=== PATIENT | female | born 1945 | race Caucasian/White ===

== ENCOUNTER → 2018-04-11 | Outpatient (CLI) | payer OTHER, BC ==
[~2018-04-11] MED LIST: HYDROCHLOROTHIA25 M2 PO; LIPITOR10 MG PO; LOPRESSOR25 PO; NORCO 5-325 TA1 EACH PO; TOPROL XL25 MG PO
--- NOTE | ~2018-04-11 | 2DMMODE ---
[facility] [place] [address] 2 D/M-MODE ECHOCARDIOGRAM Name: TRUDY RAMIREZ Room #: REG [facility]#: [id number] Admission: 04/11/18 Attend Phys: Kurtis Szymanski Discharge: Date of : 41 Date of Service: 04/11/18 1031 Report #: [id number] THIS REPORT FOR: //name// APPROVED REPORT Study performed: 04/11/2018 09:39:36 EXAM: Comprehensive 2D, Doppler, and color-flow Echocardiogram Patient Location: Out-Patient Status: routine BSA: 1.74 HR: 69 bpm BP: 118/82 mmHg Rhythm: Pacemaker Other Information Study Quality: Good Indications Pacemaker 2D Dimensions RVDd: 33.54 mm IVSd: 9.83 (7-11mm) LVOT Diam: 18.79 (18-24mm) LVDd: 40.91 mm PWd: 10.24 (7-11mm) Ascending Ao: 29.71 (22-36mm) LVDs: 32.73 (25-40mm) Aortic Root: 29.37 mm IVC: 23.00 mm Volumes Left Atrial Volume (Systole) Single Plane 4CH: 87.66 mL Single Plane 2CH: 76.60 mL LA ESV Index: 50.00 mL/m2 Aortic Valve AoV Peak Sven.: 1.10 m/s AO Peak Gr.: 4.84 mmHg LVOT Max P.42 mmHg LVOT Max V: 0.78 m/s CAITLYN Vmax: 1.96 cm2 Pulmonary Valve PV Peak Sven.: 0.70 m/s PV Peak Gr.: 1.95 mmHg Tricuspid Valve [facility] [address] [address] 2 D/M-MODE ECHOCARDIOGRAM Name: TRUDY RAMIREZ Room #: REG [facility]#: [id number] Admission: 04/11/18 Attend Phys: Kurtis Szymanski Discharge: Date of : 41 Date of Service: 04/11/18 1031 Report #: [id number] TR Peak Sven.: 2.31 m/s TR Peak Gr.: 21.33 mmHg PA Pressure: 31.00 mmHg Left Ventricle The left ventricle is normal size. There is hypokinesis in the apical wall. There is hypokinesis in the apical septal wall. There is hypokinesis in the inferior wall. Mild concentric left ventricular hypertrophy. Left ventricular systolic function is mildly decreased. LVEF is 40-45%. This study is not technically sufficient to allow evaluation of the LV diastolic function. Right Ventricle The right ventricle is normal size. The right ventricular systolic function is normal. Pacemaker lead is present in the right ventricle. Atria Left atrium is dilated. Right atrium is dilated. Pacemaker lead is present in the right atrium. Aortic Valve The aortic valve is normal in structure. Aortic valve is calcified. No aortic regurgitation is present. There is no aortic valvular stenosis. Mitral Valve The mitral valve is normal in structure. Mild mitral regurgitation. No evidence of mitral valve stenosis. Tricuspid Valve The tricuspid valve is normal in structure. There is moderate tricuspid regurgitation. Estimated PAP 31 mmHg. There is mild pulmonary hypertension. Pulmonic Valve The pulmonary valve is normal in structure. Trace pulmonic regurgitation. Great Vessels The aortic root is normal in size. IVC is dilated and collapses >50% with inspiration. Pericardium There is no pericardial effusion. <Conclusion> [facility] [address] [place] [address] 2 D/M-MODE ECHOCARDIOGRAM Name: TRUDY RAMIREZ Room [facility]: [facility] [id number] Admission: 04/11/18 Attend Phys: Kurtis Szymanski Discharge: Date of : 41 Date of Service: 04/11/18 1031 Report #: [id number] The left ventricle is normal size. LVEF is 40-45%. There is hypokinesis in the apical wall. There is hypokinesis in the apical septal wall. There is hypokinesis in the inferior wall. Left atrium is dilated. Right atrium is dilated. Pacemaker lead is present in the right atrium. The aortic valve is normal in structure. Aortic valve is calcified. There is no aortic valvular stenosis. The mitral valve is normal in structure. Mild mitral regurgitation. The tricuspid valve is normal in structure. There is moderate tricuspid regurgitation. Estimated PAP 31 mmHg. There is mild pulmonary hypertension. The pulmonary valve is normal in structure. Trace pulmonic regurgitation. There is no pericardial effusion. <ELECTRONICALLY SIGNED> By: Abhishek Campos MD 04/11/18 1031 1031 1031 Abhishek Campos MD /INF
== END ==
LOC: CV 09:30
DX: I08.1 Rheumatic disorders of both mitral and tricuspid valves (principal); I27.20 Pulmonary hypertension, unspecified; Z95.0 Presence of cardiac pacemaker

== ENCOUNTER → 2019-04-25 | Outpatient (CLI) | payer OTHER, BC ==
--- NOTE | 2019-04-25 09:38 | 2DMMODE ---
[facility] [place] [address] 2 D/M-MODE ECHOCARDIOGRAM Name: TRUDY RAMIREZ Room #: REG [facility]#: [id number] Admission: 04/25/19 Attend Phys: Kurtis Szymanski Discharge: Date of : 41 Report #: [id number] THIS REPORT FOR: //name// APPROVED REPORT Study performed: 04/25/2019 09:00:37 EXAM: Comprehensive 2D, Doppler, and color-flow Echocardiogram Patient Location: Out-Patient Status: routine BSA: 1.67 HR: 70 bpm BP: 118/82 mmHg Rhythm: Pacemaker Other Information Study Quality: Excellent Indications Pacemaker, cardiomyopathy. 2D Dimensions RVDd: 39.42 mm IVSd: 12.00 (7-11mm) LVOT Diam: 19.12 (18-24mm) LVDd: 41.41 mm PWd: 10.01 (7-11mm) Ascending Ao: 30.61 (22-36mm) LVDs: 32.82 (25-40mm) Aortic Root: 29.98 mm Volumes Left Atrial Volume (Systole) Single Plane 4CH: 97.47 mL Single Plane 2CH: 87.38 mL LA ESV Index: 60.00 mL/m2 Aortic Valve AoV Peak Sven.: 1.26 m/s AO Peak Gr.: 6.30 mmHg LVOT Max P.86 mmHg LVOT Max V: 0.85 m/s CAITLYN Vmax: 1.93 cm2 Mitral Valve MV Decel. Time: 101.63 ms MV E Max Sven.: 0.80 m/s IVRT: 115.34 ms [facility] [address] [place] [address] 2 D/M-MODE ECHOCARDIOGRAM Name: TRUDY RAMIREZ [facility] #: [facility] [id number] Admission: 04/25/19 Attend Phys: [facility] Discharge: Date of : 41 Report #: [id number] Pulmonary Valve PV Peak Sven.: 0.59 m/s PV Peak Gr.: 1.40 mmHg Pulmonary Vein P Vein S: 0.26 m/s P Vein D: 0.55 m/s P Vein S/D Ratio: 0.47 Tricuspid Valve TR Peak Sven.: 2.00 m/s RAP Estimate: 5.00 mmHg TR Peak Gr.: 16.02 mmHg PA Pressure: 21.00 mmHg Left Ventricle The left ventricle is normal size. Mild basal septal hypertrophy is present. Left ventricular systolic function moderately decreased. Prominent discordant motion, probably from right ventricular pacing LVEF is 40-45%. This study is not technically sufficient to allow evaluation of the LV diastolic function. Right Ventricle The right ventricle is normal size. The right ventricular systolic function is normal. Atria Left atrium is severely dilated. Right atrium is severely dilated. Pacemaker lead is present in the right atrium. Aortic Valve The aortic valve is normal in structure No aortic regurgitation is present. There is no aortic valvular stenosis. Mitral Valve The mitral valve is normal in structure. Moderate mitral regurgitation. No evidence of mitral valve stenosis. Tricuspid Valve The tricuspid valve is normal in structure. Severe tricuspid regurgitation. Estimated PAP is 20-25mmHg. Pulmonic Valve The pulmonary valve is normal in structure. Mild pulmonic regurgitation. Great Vessels [facility] [place] [address] [place] [address] 2 D/M-MODE ECHOCARDIOGRAM Name: TRUDY RAMIREZ RYDER Room #: [facility] GIANNA Aguilera#: [id number] Admission: 04/25/19 Attend Phys: [facility]is [facility] Discharge: Date of : 41 Report #: [id number] The aortic root is normal in size. The ascending aorta is normal in size. IVC is normal in size and collapses >50% with inspiration. Pericardium There is no pericardial effusion. <Conclusion> Left ventricular systolic function moderately decreased. Prominent discordant motion, probably from right ventricular pacing LVEF is 40-45%. Both atria are severely dilated. The aortic valve is normal in structure. No aortic regurgitation or stenosis The mitral valve is normal in structure. Moderate mitral regurgitation. Severe tricuspid regurgitation. Estimated pulmmonary artery pressure of 20-25mmHg. There is no pericardial effusion. <ELECTRONICALLY SIGNED> By: Blas Bolaños MD, [facility] 04/25/19937 7 7 Blas Bolaños MD, [facility] /INF
== END ==
LOC: CV 03-30 16:18
DX: I08.8 Other rheumatic multiple valve diseases (principal); I42.9 Cardiomyopathy, unspecified

== ENCOUNTER → 2019-10-18 | Outpatient (CLI) | payer OTHER, BC | LOC: ULTRA 07:44 | DX: K80.20 Calculus of gallbladder without cholecystitis without obstruction (principal); K86.89 Other specified diseases of pancreas; R94.5 Abnormal results of liver function studies; R74.8 Abnormal levels of other serum enzymes ==

== ENCOUNTER → 2020-05-01 | Outpatient (CLI) | payer OTHER, BC | LOC: SJCVCIMAG 08:43 | PROVIDERS: ATTEND Internal Medicine Cardiovascular Disease | DX: I08.8 Other rheumatic multiple valve diseases (principal); R94.31 Abnormal electrocardiogram [ECG] [EKG]; I11.9 Hypertensive heart disease without heart failure; I49.5 Sick sinus syndrome; I48.0 Paroxysmal atrial fibrillation; I42.9 Cardiomyopathy, unspecified; Z79.899 Other long term (current) drug therapy ==

== ENCOUNTER → 2020-08-09 | Outpatient (CLI) | payer OTHER, BC | LOC: ULTRA 09:23 | PROVIDERS: ATTEND Family Medicine | DX: K76.0 Fatty (change of) liver, not elsewhere classified (principal); K80.20 Calculus of gallbladder without cholecystitis without obstruction; R79.89 Other specified abnormal findings of blood chemistry; R60.9 Edema, unspecified; R19.8 Other specified symptoms and signs involving the digestive system and abdomen; R10.9 Unspecified abdominal pain ==

== ENCOUNTER → 2020-10-02 | Outpatient (CLI) | payer OTHER, BC | LOC: SJCVCIMAG 09:02 | PROVIDERS: ATTEND Internal Medicine Cardiovascular Disease | DX: I08.8 Other rheumatic multiple valve diseases (principal); I50.9 Heart failure, unspecified; Z95.0 Presence of cardiac pacemaker; I73.9 Peripheral vascular disease, unspecified; M79.661 Pain in right lower leg; M79.662 Pain in left lower leg ==

== ENCOUNTER → 2020-10-09 | Outpatient (CLI) | payer OTHER, BC ==
[~2020-10-09] MED LIST changes: +ELIQUIS5 MG PO; +FUROSEMIDE 20 M20 MG PO; +METOPROLOL TART25 MG PO
== END ==
LOC: SJCVCIMAG 10:25
PROVIDERS: ATTEND Internal Medicine Cardiovascular Disease
DX: I44.7 Left bundle-branch block, unspecified (principal); I48.0 Paroxysmal atrial fibrillation; I44.2 Atrioventricular block, complete; I50.22 Chronic systolic (congestive) heart failure; Z95.0 Presence of cardiac pacemaker; Z79.899 Other long term (current) drug therapy

== ENCOUNTER → 2020-10-11 | Outpatient (CLI) | payer OTHER, BC | LOC: LAB 08:58 | PROVIDERS: ATTEND Student in an Organized Health Care Education/Training Program | DX: Z01.812 Encounter for preprocedural laboratory examination (principal); Z20.822 Contact with and (suspected) exposure to COVID-19 ==

== ENCOUNTER → 2020-10-14 | Outpatient (CLI) | payer OTHER, BC ==
[~2020-10-14] VITALS: Ht 157.5 cm; Wt 69.0 kg
--- NOTE | 2020-10-16 17:07 | PATH ---
[facility] [address] [address] PATHOLOGY RPT PROCEDURE Name: TRUDY RAMIREZ Room #: REG PAUL M.R.#: [id number] Admission: 10/14/20 Date of : 41 Discharge: Report #: [id number] Path Case #: [id number] [facility] Accession Number: [id number] . 01 Material submitted: . PART A: duodenum - DUODENAL BIOPSIES PART B: gastrointestinal site - RANDOM GASTRIC BIOPSY R/O H PYLORI PART C: colon - ASCENDING COLON POLYPS. Modifiers: ascending . 01 Clinical history: . ANEMIA . 02 Diagnosis: A. Small bowel mucosa, duodenum, endoscopic biopsy: - Mild non-specific focal chronic duodenitis. - Negative for villous blunting or increase in intraepithelial lymphocytes. . B. Gastric mucosa, random gastric rule out H. pylori, endoscopic biopsy: - Mild reactive gastropathy. - Negative for intestinal metaplasia or atrophy. - Negative for Helicobacter pylori (properly controlled immunohistochemical stain performed). . C. Polyps, ascending colon, endoscopic biopsy: - Tubular adenoma. - Negative for high grade dysplasia. (IUV/db; 10/16/2020) LBQ 10/16/2020 1403 Local . 02 Electronically signed: . Cary Chinchilla MD, Pathologist NPI- [id number] . 01 Gross description: . A. The specimen is received in formalin, labeled "Trudy Ramirez, duodenal biopsy ". Received are three segments of pale naranjo tissue ranging in size from 0.3-0.4 cm in maximum dimensions. The specimen is submitted entirely in cassette A1. . B. The specimen is received in formalin, labeled "Trudy Ramirez, random gastric biopsy". Received are five segments of pale naranjo tissue ranging in size from 0.2-0.9 cm in maximum dimensions. The specimen is submitted entirely in cassette B1. . C. The specimen is received in formalin, labeled "Trudy Ramirez, ascending colon polyp". Received are two segments of pale naranjo tissue measuring 0.[address] [address] PATHOLOGY RPT PROCEDURE Name: TRUDY RAMIREZ [facility] Room #: REG CL M.John.#: [id number] Admission: 10/14/20 Date of : 41 Discharge: Report #: [id number] Path Case #: [id number] and 0.5 cm in maximum dimensions. The specimen is submitted entirely in cassette C1. (CAA; 10/15/2020) QAC/QAC 10/15/2020 1254 Local . 02 Pathologist provided ICD-10: K29.80, K31.9, D12.2 . 02 CPT . 908440, 479675, 003938, T31318 Specimen Comment: A courtesy copy of this report has been sent to [phone] Specimen Comment: [phone] Specimen Comment: Report sent to / DR BERRIOS Performed at: 01 [facility] [address] [facility] [address], [place] [id number] MD Michi Beasley MD Phone: [phone] Performed at: [address] [id number] MD Cary Chinchilla MD Phone: [phone]
== END | disposition home or self-care (01) ==
LOC: GI 07:08
PROVIDERS: ATTEND Internal Medicine Gastroenterology
DX: D50.9 Iron deficiency anemia, unspecified (principal); D12.2 Benign neoplasm of ascending colon; K64.8 Other hemorrhoids; K29.80 Duodenitis without bleeding; K31.9 Disease of stomach and duodenum, unspecified; I10 Essential (primary) hypertension; E78.00 Pure hypercholesterolemia, unspecified; Z98.890 Other specified postprocedural states; Z79.899 Other long term (current) drug therapy; Z98.41 Cataract extraction status, right eye; Z98.42 Cataract extraction status, left eye; Z95.0 Presence of cardiac pacemaker
CPT/HCPCS: 62110; 62900

== ENCOUNTER → 2020-11-13 | Outpatient (CLI) | payer OTHER, BC | LOC: SJCVC 13:18 | PROVIDERS: ATTEND Internal Medicine Cardiovascular Disease | DX: I11.0 Hypertensive heart disease with heart failure (principal); I50.23 Acute on chronic systolic (congestive) heart failure; I42.8 Other cardiomyopathies; I44.2 Atrioventricular block, complete; Z95.0 Presence of cardiac pacemaker; I49.5 Sick sinus syndrome; I48.0 Paroxysmal atrial fibrillation; E78.5 Hyperlipidemia, unspecified; Z79.899 Other long term (current) drug therapy ==

== ENCOUNTER 2020-11-18 10:54 | Observation (INO) | payer OTHER, BC ==
[~2020-11-18] VITALS: Ht 154.9 cm; Wt 63.0 kg
[2020-11-18 10:33] LABS: ABSOLUTE NEUTROPHILS 2.8 thou/uL (1.4-8.2); BASOPHILS 0.4 % (0.0-2.0); EOSINOPHILS 5.3 % (0.0-3.0); HEMOGLOBIN 10.6 gm/dL (12.0-15.0); LYMPHOCYTES 20.7 % (24.0-44.0); MCH 33.3 pg (26.0-34.0); MCHC 33.1 g/dL (28.0-37.0); MCV 100.5 fL (80.0-100.0); MONOCYTES 12.7 % (1.0-8.0); PLATELET COUNT 114 thou/uL (150-400); POLYS 60.9 % (36.0-66.0); RBC 3.18 mil/uL (4.20-5.00); RDW 16.4 % (10.5-14.5); WBC 4.6 thou/uL (4.0-11.0)
[2020-11-18 10:35] VITALS: BP 139/54
[2020-11-18 10:42] LABS: CALCIUM 8.5 mg/dL (8.5-10.1); CREATININE 0.8 mg/dL (0.6-1.0); POTASSIUM 3.2 mmol/L (3.5-5.1)
[2020-11-18 10:47] LABS: ALBUMIN 3.1 g/dL (3.4-5.0); APTT 29.6 Seconds (24.5-32.8); INR 1.32; PROTIME 14.2 Seconds (10.5-12.1); TOTAL BILIRUBIN 2.9 mg/dL (0.2-1.0)
[~2020-11-18 10:54] MED LIST changes: +KLOR-CON 1010 MEQ PO
--- NOTE | 2020-11-18 17:33 | NUR ---
PATIENT ADMITTED TO CCU POST PACEMAKER PLACEMENT. ALERT/ORIENTED. AV PACED ON THE MONITOR. DENIES ANY PAIN OR DISCOMFORT. LEFT CHEST INCISION SITE OPEN TO AIR. LEFT ARM IMMOBILIZER IN PLACE. DENIES ANY NEEDS OR CONCERNS AT THIS TIME. ADMISSION ASSESSMENTS COMPLETE.
[2020-11-18 20:01] VITALS: BP 115/47
[2020-11-19 00:20] VITALS: BP 108/46
--- NOTE | 2020-11-19 03:27 | NUR ---
PT IS VERY PLEASANT AND COOPERATIVE. SHE DENIES ANY SOA. MILD SWELLING TO BILAT ANKLES/FEET. LUE IMMOBILIZER IN PLACE. LEFT CHEST PACEMAKER SITE INTACT WITHOUT DRAINAGE OR HEMATOMA. AV-PACED ON TELE. PT HAS BEEN ON BEDREST DURING THE NIGHT, EXCEPT FOR GETTING UP TO PIVOT TO BSC. GOOD URINE OUTPUT. PT SLEPT MOST OF THE NIGHT AFTER TAKING BEDTIME TEMAZEPAM. VSS. PROGRESSING TOWARD POC GOALS. WILL CONTINUE TO MONITOR FURTHER.
[2020-11-19 03:45] VITALS: BP 90/43
[2020-11-19 06:28] LABS: CALCIUM 7.9 mg/dL (8.5-10.1); CREATININE 0.7 mg/dL (0.6-1.0); POTASSIUM 3.5 mmol/L (3.5-5.1)
[2020-11-19 12:05] VITALS: BP 90/43
--- NOTE | 2020-11-19 13:08 | NUR ---
IV'S REMOVED X2. PT DRESSED AND TELE REMOVED. DISCHARGE PAPERWORK AND EDUCATION GONE OVER WITH PT BY RN INCLUDING INCISION CARE PAPER HANDOUT. QUESTIONS ANSWERED.
--- NOTE | 2020-12-04 15:11 | P ---
[facility] [place] [address] PROCEDURE REPORT Name: TRUDY RAMIREZ Room #: 214-P [facility] Venu Aguilera#: [id number] Admission: 11/18/20 Attend Phys: Kurtis Szymanski MD Discharge: 11/19/20 Date of : 41 Report #: [id number] THIS REPORT FOR: cc: Janice Kruse MD, Nora P. MD Couchonnal, Luis F. MD ~ DOC #: [id number] Kurtis Szymanski MD DATE OF SERVICE: 11/18/2020 PROCEDURE: Upgrade to biventricular pacemaker. HISTORY: The patient is a 75-year-old female with a history of sick sinus syndrome, status post pacemaker implantation with a [employer] device back in July of 2015. She has developed worsening heart failure symptoms with chronic RV pacing and her ejection fraction is now 40%. She is here for upgrade to a biventricular pacemaker. ANESTHESIA: The patient underwent MAC anesthesia. No anesthesia related complications. DESCRIPTION OF PROCEDURE: The patient underwent informed consent. We discussed the details of the procedure including the risks, which include but not limited to bleeding, infection, vascular damage, cardiac perforation, pneumothorax. She understood these risks and is willing to proceed. The patient was brought to the EP laboratory in a fasting and sedated state, prepped and draped in a sterile fashion. She received IV antibiotics prior to initiation of the procedure, underwent a venogram showing patency of left axillary vein. Next, lidocaine was injected at the prior incision site. Incision was made. Chronic pocket was entered and then I obtained access to the left axillary vein x1. Short sheath was positioned and then a coronary sinus guide sheath was placed into the right atrium. I quickly obtained access to the coronary sinus and a coronary sinus venogram showed that she had an anterolateral branch. There were no significant posterolateral branches noted. As such, the lead was positioned here with adequate pacing and sensing thresholds. The lead was sutured to the prepectoral fascia and then there was evidence of loss of capture of the LV lead, although it did not appear to have significantly moved. Therefore, I rechecked multiple pacing vectors and finally found a satisfactory threshold. The patient does have significant tricuspid regurgitation and pulmonary hypertension. Therefore, there was a lot of bleeding around the LV lead. So, I did do a bostvv-je-thors suture around the lead being careful to avoid tightening around the actual lead. This helped stop the significant bleeding that she was having that I could not stop with manual compression. The leads were connected to the new device that was placed in the pocket and then the pocket was closed in two layers and surgical glue was placed [address] [address] PROCEDURE REPORT Name: TRUDY RAMIREZ Room #: 214-P PAUL Aguilera#: [id number] Admission: 11/18/20 Attend Phys: Kurtis Szymanski MD Discharge: 11/19/20 Date of : 41 Report #: [id number] to outer skin layer. There were no procedure related complications. The newly implanted device was a [employer], model #3562, serial #[id number]. The atrial lead was a [employer] 2088, serial #[id number] and the RV lead was 2088, 52 cm, serial #[id number]. Both of these leads were implanted on 08/23/2015. The newly implanted LV lead was a [employer], model #1458Q, serial #[id number]. The atrial lead demonstrated a P-wave of 0.8 millivolts, pacing impedance of 380 ohms and the pacing threshold 1.5 volts at 0.5 milliseconds. The RV lead demonstrated a pacing impedance of 380 ohms and the pacing threshold 1 volt at 0.5 milliseconds. The final LV pacing configuration was from ____ with a threshold of 2.2 volts at 1 millisecond. The LV lead was programmed to pace 30 milliseconds prior to the RV lead, which resulted in the QRS duration, improving to 120 milliseconds. The device was programmed to DDDR 60-130 mode. CONCLUSION: 1. Successful upgrade to a biventricular ICD. 2. Satisfactory atrial, right ventricular, and left ventricular pacing and sensing thresholds. MD CHU Muniz/FREIDA/JERICA <ELECTRONICALLY SIGNED> By: Kurtis Szymanski MD 12/04/20 1511 1139 416 Kurtis Szymanski MD /nt
== END 2020-11-19 13:39 | disposition home or self-care (01) ==
LOC: CATH 10:54 → 2N 14:39
PROVIDERS: ADMIT Internal Medicine Cardiovascular Disease; ATTEND Internal Medicine Cardiovascular Disease
DX: I49.5 Sick sinus syndrome (principal); I48.0 Paroxysmal atrial fibrillation; I48.91 Unspecified atrial fibrillation; I11.0 Hypertensive heart disease with heart failure; I50.23 Acute on chronic systolic (congestive) heart failure; Z79.899 Other long term (current) drug therapy
CPT/HCPCS: 62110; 62900; 70005

== ENCOUNTER → 2020-11-26 | Outpatient (CLI) | payer OTHER, BC | LOC: SJCVC 15:51 | PROVIDERS: ATTEND Internal Medicine Cardiovascular Disease | DX: I48.0 Paroxysmal atrial fibrillation (principal); I42.8 Other cardiomyopathies; R00.1 Bradycardia, unspecified; I08.1 Rheumatic disorders of both mitral and tricuspid valves; Z95.0 Presence of cardiac pacemaker; Z79.899 Other long term (current) drug therapy; Z72.89 Other problems related to lifestyle ==

== ENCOUNTER → 2021-01-07 | Outpatient (CLI) | payer OTHER, BC ==
[~2021-01-07] MED LIST changes: +FUROSEMIDE 40 M40 MG PO
== END | disposition home or self-care (01) ==
LOC: GI 01-02 09:06
PROVIDERS: ATTEND Internal Medicine Gastroenterology
DX: D64.9 Anemia, unspecified (principal); K55.20 Angiodysplasia of colon without hemorrhage; I50.9 Heart failure, unspecified; Z98.890 Other specified postprocedural states; Z79.899 Other long term (current) drug therapy

== ENCOUNTER → 2021-01-27 | Outpatient (CLI) | payer OTHER, BC ==
[~2021-01-27] VITALS: Ht 154.9 cm; Wt 65.8 kg
== END | disposition home or self-care (01) ==
LOC: GI 07:46
PROVIDERS: ATTEND Internal Medicine Gastroenterology
DX: K92.2 Gastrointestinal hemorrhage, unspecified (principal); I11.0 Hypertensive heart disease with heart failure; I50.9 Heart failure, unspecified; I42.9 Cardiomyopathy, unspecified; E78.00 Pure hypercholesterolemia, unspecified; Z98.890 Other specified postprocedural states; Z79.899 Other long term (current) drug therapy; Z79.01 Long term (current) use of anticoagulants; Z20.822 Contact with and (suspected) exposure to COVID-19
CPT/HCPCS: 62110; 62900

== ENCOUNTER → 2021-01-28 | Outpatient (CLI) | payer OTHER, BC | LOC: CAT 01-17 08:49 | PROVIDERS: ATTEND Internal Medicine Gastroenterology | DX: K80.18 Calculus of gallbladder with other cholecystitis without obstruction (principal); K76.0 Fatty (change of) liver, not elsewhere classified; J90 Pleural effusion, not elsewhere classified; I51.7 Cardiomegaly; I70.0 Atherosclerosis of aorta; R18.8 Other ascites; K76.9 Liver disease, unspecified; D50.8 Other iron deficiency anemias; M47.816 Spondylosis without myelopathy or radiculopathy, lumbar region; R94.5 Abnormal results of liver function studies; Z95.0 Presence of cardiac pacemaker ==

== ENCOUNTER → 2021-02-18 | Outpatient (CLI) | payer OTHER, BC | LOC: SJCVCIMAG 09:45 | PROVIDERS: ATTEND Internal Medicine Cardiovascular Disease | DX: I08.8 Other rheumatic multiple valve diseases (principal); I48.0 Paroxysmal atrial fibrillation; I42.8 Other cardiomyopathies; I42.9 Cardiomyopathy, unspecified; Z95.0 Presence of cardiac pacemaker; Z79.899 Other long term (current) drug therapy; Z72.89 Other problems related to lifestyle ==

== ENCOUNTER → 2021-04-08 | Outpatient (CLI) | payer OTHER, BC | LOC: SJCVC 10:20 | PROVIDERS: ATTEND Internal Medicine Cardiovascular Disease | DX: R60.9 Edema, unspecified (principal) ==

== ENCOUNTER → 2021-04-09 | Outpatient (CLI) | payer OTHER, BC | LOC: SJCVC 15:17 | PROVIDERS: ATTEND Internal Medicine Cardiovascular Disease | DX: I50.813 Acute on chronic right heart failure (principal); I48.91 Unspecified atrial fibrillation; M25.471 Effusion, right ankle; M25.472 Effusion, left ankle; R60.9 Edema, unspecified; Z95.0 Presence of cardiac pacemaker; Z79.899 Other long term (current) drug therapy; Z72.89 Other problems related to lifestyle ==

== ENCOUNTER 2021-04-15 11:06 | Inpatient (IN) | payer OTHER, BC ==
[2021-04-15] VITALS (11 sets, daily range): BP systolic 92–114; BP diastolic 17–47
[~2021-04-15] VITALS: Ht 154.9 cm; Wt 75.7 kg
[2021-04-15 12:07] LABS: MCH 30.1 pg (26.0-34.0); MCHC 31.6 g/dL (28.0-37.0); MCV 95.2 fL (80.0-100.0); RBC 1.94 mil/uL (4.20-5.00); RDW 20.3 % (10.5-14.5); WBC 5.1 thou/uL (4.0-11.0)
[2021-04-15 12:09] LABS: HEMATOCRIT 18.5 % (37.0-47.0)
[2021-04-15 12:12] LABS: HEMOGLOBIN 5.8 gm/dL (12.0-15.0)
[2021-04-15 12:23] LABS: CALCIUM 8.4 mg/dL (8.5-10.1); CREATININE 1.3 mg/dL (0.6-1.0); POTASSIUM 4.6 mmol/L (3.5-5.1)
[2021-04-15 12:29] LABS: ALBUMIN 2.4 g/dL (3.4-5.0); TOTAL BILIRUBIN 2.3 mg/dL (0.2-1.0); TOTAL PROTEIN 6.8 g/dL (6.4-8.2)
[2021-04-15 15:35] LABS: % SATURATION 13 % (20-39); IRON 53 ug/dL (50-170); TIBC 415 ug/dL (250-450)
--- NOTE | 2021-04-15 18:17 | NUR ---
pt arrive from er to ICU at 1710. Pt alert and oriented x4. pt was on protonix gtt on arrival to ICU. Pt's first unit of blood transfusion was already completed in the ER. Pt is bradycardic and AV paced. Pt's blood pressure systolic above 100 and MAP above 65.pt has a purse with cellphone, clothings and cane.
[2021-04-15] MEDS ORDERED: DEMADEX20 MG PO (18:26)
[2021-04-15] MEDS ORDERED: HYDROXYZINE HCL25 M2 (18:31)
[2021-04-15] MEDS ORDERED: METOPROLOL SUCC25 M1 (18:31)
[2021-04-15] MEDS ORDERED: KLOR-CON M2020 MEQ (18:32)
[2021-04-15 18:47] LABS: HEMOGLOBIN 6.6 gm/dL (12.0-15.0)
[2021-04-15 18:48] LABS: HEMATOCRIT 20.8 % (37.0-47.0)
[2021-04-16] VITALS (52 sets, daily range): BP systolic 63–128; BP diastolic 22–58
[2021-04-16 03:12] LABS: HEMATOCRIT 23.3 % (37.0-47.0); HEMOGLOBIN 7.7 gm/dL (12.0-15.0)
[2021-04-16 03:15] LABS: HEMATOCRIT 21.6 % (37.0-47.0); HEMOGLOBIN 7.3 gm/dL (12.0-15.0); MCH 30.3 pg (26.0-34.0); MCHC 33.8 g/dL (28.0-37.0); RBC 2.41 mil/uL (4.20-5.00); RDW 18.7 % (10.5-14.5)
[2021-04-16 03:17] LABS: MCV 89.7 fL (80.0-100.0)
[2021-04-16 05:58] LABS: INR 1.49; PROTIME 15.9 Seconds (10.5-12.1)
--- NOTE | 2021-04-16 07:18 | EKG ---
[address] [place] [address] ELECTROCARDIOGRAM REPORT Name: TRUDY RAMIREZ Room #: 249-P ADM IN M.R.#: [id number] Admission: 04/15/21 Attend Phys: Nicho Cano MD Discharge: Date of : 41 Report #: [id number] [facility] ED Test Date: 2021-04-15 Test Time: 11:57:40 Pat Name: TRUDY RAMIREZ Department: Room: 249 Gender: F [employer] Supervisor: ALEXIS : 1945 Requested By: Wendy Lakhani Order Number: [id number] MD: Musa Trevizo Measurements Intervals [place] Rate: 68 P: 0 DE: 53 QRS: -49 QRSD: 118 T: 126 QT: 457 QTc: 487 Interpretive Statements A-V dual-paced complexes w/ some inhibition No further analysis attempted due to paced rhythm Compared to ECG 08/24/2015 06:34:04 Atrial-paced complex(es) or rhythm no longer present Electronically Signed On 04-16-2021 7:18:08 OPERATING ROOM TECHNICIAN by Musa Trevizo [email or web address] <ELECTRONICALLY SIGNED> By: Musa Trevizo MD, FACC 04/16/21 0718 1157 1157 Musa Trevizo MD, [facility] /EPI
[2021-04-16 09:03] LABS: CALCIUM 8.3 mg/dL (8.5-10.1); CREATININE 1.2 mg/dL (0.6-1.0); POTASSIUM 4.3 mmol/L (3.5-5.1)
--- NOTE | 2021-04-16 12:49 | NUR ---
VAT CONSULTED FOR PIV FOR BLOOD PRODUCTS. ATTEMPTED RIGHT HAND 22G WITHOUT SUCCESS, X1. ASSESSED BILATERAL ARMS WITH US. VESSELS VERY SMALL. RIGHT UPPER ARM BRACHIAL ML PLACED, TRIMMED 14CM/0 EXTERNAL. FLUSHES WELL AND RETURNS BLOOD. RELEASED LINE FOR USE AT 1210, PER HOSPITAL VASCULAR ACCESS POLICY.
--- NOTE | 2021-04-16 13:00 | 2DMMODE ---
[address] [address] 2 D/M-MODE ECHOCARDIOGRAM Name: TRUDY RAMIREZ [facility] Room #: 249-P ADM IN M.R.#: [id number] Admission: 04/15/21 Attend Phys: Nicho Cano MD Discharge: Date of : 41 Report #: [id number] REPORT FOR: cc: Janice Kruse MD, Nora P. MD Lundgren, Craig H. MD [facility] ~ APPROVED REPORT Study performed: 04/16/2021 11:21:21 EXAM: Comprehensive 2D, Doppler, and color-flow Echocardiogram Patient Location: ICU Room #: 249 Status: routine BSA: 1.75 HR: 64 bpm BP: 91/41 mmHg Rhythm: Pacemaker Other Information Study Quality: Good Indications Congestive Heart Failure Atrial Fibrillation Dyspnea Pacemaker 2D Dimensions IVC: 30.00 mm Aortic Valve AoV Peak Sven.: 1.70 m/s AO Peak Gr.: 11.55 mmHg Tricuspid Valve TR Peak Sven.: 2.53 m/s TR Peak Gr.: 25.74 mmHg PA Pressure: 36.00 mmHg Left Ventricle The left ventricle is normal size. Paradoxical septal motion consistent with paced rhythm. There is normal left ventricular wall thickness. The left ventricular systolic function is normal. The left [address] [address] 2 D/M-MODE ECHOCARDIOGRAM Name: TRUDY RAMIREZ Room #: 249-P ADM IN M.R.#: [id number] Admission: 04/15/21 Attend Phys: Nicho Cano MD Discharge: Date of : 41 Report #: [id number] ventricular ejection fraction is within the normal range. LVEF is 55-60%. This study is not technically sufficient to allow evaluation of the LV diastolic function due to atrial fibrillation. Right Ventricle Right ventricle is dilated. The right ventricular systolic function is normal. Pacemaker lead is present in the right ventricle. Atria Left atrium is dilated. Right atrium is dilated. Pacemaker lead is present in the right atrium. Aortic Valve The aortic valve is normal in structure. No aortic regurgitation is present. There is no aortic valvular stenosis. Mitral Valve The mitral valve is normal in structure. Mild mitral regurgitation. No evidence of mitral valve stenosis. Tricuspid Valve The tricuspid valve is normal in structure. There is severe tricuspid regurgitation. Estimated pulmonary artery pressure of 35 mmHg. Pulmonic Valve The pulmonary valve is normal in structure. There is no pulmonic valvular regurgitation. Great Vessels The aortic root is normal in size. IVC is dilated and collapses <50% with inspiration. Pericardium There is no pericardial effusion. <Conclusion> The left ventricular systolic function is normal. Paradoxical septal motion consistent with paced rhythm. LVEF is 55-60%. Right ventricle is dilated. Both atria are dilated. The aortic valve is normal in structure. No aortic regurgitation or stenosis. The mitral valve is normal in structure. Mild mitral regurgitation. There is severe tricuspid regurgitation. Estimated pulmonary artery [facility] [address] [place] [address] 2 D/M-MODE ECHOCARDIOGRAM Name: TRUDY RAMIREZ Room #: 249-P ADM IN M.R.#: [id number] Admission: 04/15/21 Attend Phys: Nicho Cano MD Discharge: Date of : 41 Report #: [id number] pressure of 35 mmHg. There is no pericardial effusion. Similar to a study dated 02/18/2021 <ELECTRONICALLY SIGNED> By: Blas Bolaños MD, FACC 04/16/21 1300 1300 1300 Blas Bolaños MD, FACC /INF
--- NOTE | 2021-04-16 15:32 | NUR ---
Case opened to follow for dc planning. Pt is currently in ICU with possible tx out later today pending her blood pressure. Pt is getting a unit of blood this afternoon for anemia. She is being treated for fluid overload as well and notes she fell once this past weekend due to swollen le. She reports that she lives alone and is active and indep. She drives and does not use any dme but does have access to a cane and walker if needed. She has not hh or snf history and her pcp is Dr. Janice Kruse. She has two steps to enter her home thru the garage and can stay on the main level. She reports that her friend yamil is able to help [phone] and her brothers Musa and Neal are her dpoa's for hc if needed. They both live out of town but are available via cell phone. Cm role introduced. Therapy evals are in process. She is hoping she can dc home with no needs. Will follow along.
[2021-04-16 17:16] LABS: HEMATOCRIT 28.6 % (37.0-47.0)
[2021-04-16 17:26] LABS: HEMOGLOBIN 9.4 gm/dL (12.0-15.0)
[2021-04-16 17:52] LABS: DIRECT BILIRUBIN 1.6 mg/dL (<0.1-0.2); TOTAL BILIRUBIN 3.4 mg/dL (0.2-1.0)
[2021-04-17] VITALS (36 sets, daily range): BP systolic 94–152; BP diastolic 26–108
--- NOTE | 2021-04-17 04:29 | NUR ---
UNABLE TO WEAN LEVO DURING THE NIGHT DUE TO MAP DROPPING BELOW 60. OVERALL PATIENT DOING WELL. VITALS STABLE. AFEBRILE. WILL CONTINUE TO FOLLOW PATIENT PLAN OF CARE.
[2021-04-17 08:45] LABS: HEMATOCRIT 24.6 % (37.0-47.0); HEMOGLOBIN 8.1 gm/dL (12.0-15.0); MCH 29.4 pg (26.0-34.0); MCHC 32.7 g/dL (28.0-37.0); MCV 89.8 fL (80.0-100.0); RBC 2.74 mil/uL (4.20-5.00); RDW 18.6 % (10.5-14.5); WBC 6.5 thou/uL (4.0-11.0)
--- NOTE | 2021-04-17 14:48 | NUR ---
ASSUMED CARES AT 0700. PATIENT A&O X 4, PLEASANT AND COOPERATIVE WITH CARES. DENIES PAIN OTHER THAN IN LEFT KNEE, BUT DOES NOT REQUIRE PAIN MEDICATIONS. WALKED WITH PHYSICAL THERAPY AROUND UNIT AND UP TO CHAIR. HAD A GOOD LUNCH AND TOLERATED IT WELL. BOWEL MOVEMENT NOTED THAT WAS MODERATE FORMED BROWN STOOL, NO BLOOD NOTED. OFF LEVOPHED AT 1145 BP HAS BEEN STABLE SINCE. NO FURTHER CONCERNS AT THIS TIME. WILL CONTINUE TO MONITOR AND CARE PER PLAN OF CARE.
--- NOTE | 2021-04-17 15:15 | NUR ---
SW reviewed chart and spoke with nursing and attending physician. Pt is progressing towards goals for discharge. Pt is transferring to CCU this afternoon. Plan is for pt to discharge home when medically stable. SW is following and is available to assist as needed with discharge planning.
[2021-04-18 00:33] VITALS: BP 125/69
--- NOTE | 2021-04-18 05:17 | NUR ---
PT ALERT AND ORIENTED. C/O SOME SORENESS TO LEFT KNEE, EDEMA NOTED TO BLE MORE TO LLE.AFEBRILE. EXT FEM CATH-URINE OUTPUT ADEQUATE.ROOM AIR AND IN NO DISTRESS.
[2021-04-18 05:26] VITALS: BP 112/44
[2021-04-18 07:00] VITALS: BP 1200/57
--- NOTE | 2021-04-18 09:53 | NUR ---
PT SAFE TO GO HOME RE: OT NEEDS ONCE MEDICALLY CLEARED
[2021-04-18 11:40] VITALS: BP 112/49
--- NOTE | 2021-04-18 14:02 | NUR ---
PT IS ALERT AND ORIENTED X4. AV PACED ON THE MONITOR AND ROOM AIR. PT DOES HAVE 2+ EDEMA TO BLE. PT IS UP TO BEDSIDE COMMODE WITH GAIT BELT AND WALKER. MIDLINE DRESSING CHANGED DUE TO SANGINOUS DRAINAGE AT INSERTION SITE. PT HAS COMPLAINT OF DISCOMFORT IN LEFT KNEE. DR. GARRETT ORDERED PRN TYLENOL FOR PT. WILL CONTINUE TO MONITOR.
[2021-04-18 15:40] VITALS: BP 124/50
--- NOTE | 2021-04-18 16:57 | NUR ---
Pt is progressing with therapy and has access to a rwalker for home use. No hh needs anticipated as pt continues to improve;however should she dc home over the weekend and HH be indicated. Referral and orders can be faxed to [facility] at [phone] and their incident response coordinator RN notified [phone]. Pt does not feel she will need it at this time.
[2021-04-18 17:07] LABS: HEMATOCRIT 23.6 % (37.0-47.0); HEMOGLOBIN 7.7 gm/dL (12.0-15.0); MCH 29.6 pg (26.0-34.0); MCHC 32.7 g/dL (28.0-37.0); MCV 90.7 fL (80.0-100.0); RBC 2.61 mil/uL (4.20-5.00); RDW 18.7 % (10.5-14.5); WBC 6.9 thou/uL (4.0-11.0)
[2021-04-18 17:21] LABS: CREATININE 1.1 mg/dL (0.6-1.0); POTASSIUM 3.5 mmol/L (3.5-5.1)
[2021-04-18 20:15] VITALS: BP 108/45
[2021-04-19 04:10] VITALS: BP 110/48
[2021-04-19 05:25] LABS: HEMATOCRIT 21.8 % (37.0-47.0); HEMOGLOBIN 7.2 gm/dL (12.0-15.0); MCHC 33.2 g/dL (28.0-37.0); MCV 90.4 fL (80.0-100.0); RBC 2.42 mil/uL (4.20-5.00); RDW 18.5 % (10.5-14.5); WBC 5.9 thou/uL (4.0-11.0)
--- NOTE | 2021-04-19 05:34 | NUR ---
ASSESSMENTS CHARTED. MEDS CHARTED GIVEN. PATIENT RESTING IN BED DURING SHIFT. UP TO BSC DURING SHIFT WITH ASSIST OF ONE. C/O LEFT KNEE PAIN. PAIN MED GIVEN CHARTED. PATIENT PLANNING ON GOING HOME TODAY.
[2021-04-19 07:50] VITALS: BP 106/50
[2021-04-19 11:50] VITALS: BP 102/44
[2021-04-19 12:06] LABS: CALCIUM 7.9 mg/dL (8.5-10.1); CREATININE 1.1 mg/dL (0.6-1.0); POTASSIUM 3.4 mmol/L (3.5-5.1)
[2021-04-19 14:13] VITALS: BP 124/54; BP 95/41
[2021-04-19 15:50] VITALS: BP 111/47
[2021-04-19] MEDS ORDERED: ACETAMINOPHEN325 M1 PO (18:21)
[2021-04-19] MEDS ORDERED: PEPCID20 MG PO (18:21)
[2021-04-19 18:29] VITALS: BP 111/47
== END 2021-04-19 19:02 | disposition home health service (06) | DRG 377 ==
LOC: ER 11:06 → EROBS 14:25 → ICU 14:25 → 2N 04-17 15:23
PROVIDERS: Internal Medicine Cardiovascular Disease; Internal Medicine Gastroenterology; Nurse Practitioner; Nurse Practitioner Family; ADMIT Internal Medicine; ATTEND Internal Medicine
PROC: 30233N1 Transfusion of Nonautologous Red Blood Cells into Peripheral Vein, Percutaneous Approach (ICD-10-PCS; principal; 2021-04-15)
PROC: 05H933Z Insertion of Infusion Device into Right Brachial Vein, Percutaneous Approach (ICD-10-PCS; 2021-04-16)
DX: K92.2 Gastrointestinal hemorrhage, unspecified (principal); I50.33 Acute on chronic diastolic (congestive) heart failure; I44.2 Atrioventricular block, complete; D64.9 Anemia, unspecified; E78.5 Hyperlipidemia, unspecified; I49.5 Sick sinus syndrome; K80.20 Calculus of gallbladder without cholecystitis without obstruction; K76.9 Liver disease, unspecified; I48.0 Paroxysmal atrial fibrillation; R53.81 Other malaise; E78.00 Pure hypercholesterolemia, unspecified; S00.93XA Contusion of unspecified part of head, initial encounter; D69.6 Thrombocytopenia, unspecified; I11.0 Hypertensive heart disease with heart failure; I95.9 Hypotension, unspecified; I07.1 Rheumatic tricuspid insufficiency; I25.5 Ischemic cardiomyopathy; Z98.42 Cataract extraction status, left eye; Z98.41 Cataract extraction status, right eye; Z95.0 Presence of cardiac pacemaker; X58.XXXA Exposure to other specified factors, initial encounter; Y93.89 Activity, other specified; Y92.89 Other specified places as the place of occurrence of the external cause; Y99.8 Other external cause status; Z20.822 Contact with and (suspected) exposure to COVID-19; Q27.33 Arteriovenous malformation of digestive system vessel
CPT/HCPCS: 10078; 10081; 27000; 85076

== ENCOUNTER → 2021-06-18 | Outpatient (CLI) | payer OTHER, BC ==
[~2021-06-18] MED LIST changes: +ACETAMINOPHEN325 M1 PO; +DEMADEX20 MG PO; +HYDROXYZINE HCL25 M2; +KLOR-CON M2020 MEQ; +METOPROLOL SUCC25 M1; +PEPCID20 MG PO
== END ==
LOC: RAD 09:26
PROVIDERS: ATTEND Internal Medicine Cardiovascular Disease
DX: S92.352A Displaced fracture of fifth metatarsal bone, left foot, initial encounter for closed fracture (principal); X58.XXXA Exposure to other specified factors, initial encounter; Y93.89 Activity, other specified; Y92.89 Other specified places as the place of occurrence of the external cause; Y99.8 Other external cause status